=== PATIENT | female | born 1975 | race Asian ===

== ENCOUNTER 2019-03-11 16:03 | Emergency (ER) | payer BC ==
[~2019-03-11] VITALS: Ht 152.4 cm; Wt 89.5 kg
[2019-03-11 16:36] LABS: HEMATOCRIT 44.2 % (37.0-47.0); HEMOGLOBIN 14.7 g/dl (12.0-16.0); IMMATURE GRANULOCYTES 0.4 % (0.0-5.0); MEAN CORPUSCULAR HGB 28.9 pG CALC (26.0-32.0); MEAN CORPUSCULAR HGB CONC 33.3 g/L CALC (32.0-36.0); NEUT# 4.69 thou/uL (2.00-7.15); RED BLOOD COUNT 5.08 mill/uL (4.20-5.60); RED CELL DISTRI WIDTH 12.3 % (11.5-15.5)
[2019-03-11 16:56] LABS: ALBUMIN 4.6 g/dL (3.2-5.0); ALKALINE PHOSPHATASE 83 u/l (38-126); ANION GAP 15 (6-22 (CALC)); BILIRUBIN, TOTAL 0.4 mg/dL (0.0-1.4); BUN 22 mg/dL (7-17); BUN/CREATININE RATIO 37 (12-20 (CALC)); CARBON DIOXIDE 22 mmol/l (22-30); CHLORIDE 106 mmol/l (95-108); CREATININE 0.6 mg/dL (0.5-1.0); GFR > 60 ML/MIN (>=60 (CALC)); GFR FOR AFR.AMER. > 60 ML/MIN (>=60 (CALC)); POTASSIUM 3.7 mmol/l (3.5-5.1); SGOT/AST 28 u/l (14-36); SODIUM 139 mmol/l (137-146); TOTAL PROTEIN 8.2 g/dL (6.3-8.2)
[2019-03-11 17:08] LABS: MYOGLOBIN 20 ng/mL (0 - 62)
[2019-03-11] MEDS ORDERED: TORADOL PO (17:25)
[2019-03-11 17:36] VITALS: BP 147/89
== END 2019-03-11 17:45 | disposition home or self-care (01) | DRG 206 ==
LOC: ED 16:03
PROVIDERS: Family Medicine
DX: M94.0 Chondrocostal junction syndrome [Tietze] (principal); F41.8 Other specified anxiety disorders; F43.0 Acute stress reaction; I10 Essential (primary) hypertension